=== PATIENT | male | born 1955 | race Caucasian/White ===

== ENCOUNTER 2017-01-26 14:52 | Emergency (ER) | payer BC ==
[2017-01-26 13:27] LABS: BASO % 0.2 % (0-2); EOS % 0.8 % (0-7); EOSINOPHIL ABSOLUTE COUNT 0.1 tho/cmm (0.0-0.7); HCT-HEMATOCRIT 43.2 % (36.0-53.5); HGB-HEMOGLOBIN 14.6 gm/dl (13.5-17.0); IMMATURE GRANULOCYTES ABSOLUTE 0.02 tho/cmm (0-0.03); IMMATURE GRANULOCYTES PERCENT 0.2 % (0-0.3); MCH (MEAN CORPUSCULAR HGB) 27.6 pg (28.0-32.0); MCHC MEAN CORPUSCULAR HGB CONC 33.8 % (32.0-36.0); MCV (MEAN CELL VOLUME) 81.7 fl (82.0-96.0); MEAN PLATELET VOLUME 9.1 cmc (9.4-12.4); MONO % 6.6 % (0-12); MONOCYTE ABSOLUTE COUNT 0.6 tho/cmm (0.0-1.2); NEUTROPHIL ABSOLUTE COUNT 5.4 tho/cmm (1.6-8.0); NEUTROPHIL-AUTOMATED 5.4 tho/cmm (1.6-8.0); NEUTROPHILS % 59.2 % (40-80); PLATELET COUNT 202 tho/cmm (150-450); RED BLOOD COUNT 5.29 mil/cmm (4.40-5.70); RED CELL DISTRIBUTION WIDTH 13.3 % (12.4-16.4)
[2017-01-26 13:48] LABS: ANION GAP 11 mmol/L (0-20); BLOOD UREA NITROGEN 18 mg/dl (6-24); CALCIUM 8.9 mg/dl (8.5-10.5); CARBON DIOXIDE-VENOUS 27 mmol/L (22-32); CHLORIDE 105 mmol/l (96-110); CREATININE 1.09 mg/dl (0.60-1.30); GLUCOSE 97 mg/dL (70-110); LIPASE 143 U/L (73-393); POTASSIUM 3.8 mmol/L (3.7-5.1); SODIUM 139 mmol/L (135-145); eGFR VALUE FOR BLACK 84 mL/Min
[~2017-01-26 14:52] MED LIST: AVODART0.5 M1 PO; AZELASTINE137 MCG/01; BIAXIN500 M2 PO; CYMBALTA30 M1 PO; DIFLUCAN100 M1 PO; FLONASE ALLERG9.9 ML; OMEPRAZOLE20 M3 PO; VITAMIN D250000 UNI1 PO; VITAMIN D32000 UNI2 PO; ZOLPIDEM TART12.5 M2 PO
[2017-01-26] MEDS ORDERED: OMEPRAZOLE40 M2 PO (15:23)
== END 2017-01-26 15:34 ==
LOC: EDMED 14:52
PROVIDERS: Emergency Medicine
DX: K21.9 Gastro-esophageal reflux disease without esophagitis (principal)